=== PATIENT | female | born 1950 | race Caucasian/White ===

== ENCOUNTER → 2017-06-13 | Outpatient (CLI) | payer MEDICARE ==
[~2017-06-13] MED LIST: AMLO5TAB2 PO; ASPI1TAB57 PO; CALCTAB94 PO; CYCL10TA PO; HYDR50TA3 PO; LISI-515 PO; OMEP20TA93 PO; PLAV75TA29 PO; SIMV10TA PO; VITA-142 PO
== END ==
LOC: PHPRE 12:06
PROVIDERS: ATTEND Obstetrics & Gynecology
DX: Z01.812 Encounter for preprocedural laboratory examination (principal); N81.2 Incomplete uterovaginal prolapse; N81.11 Cystocele, midline
CPT/HCPCS: 36415; 86850; 86900; 86901; 86920

== ENCOUNTER 2017-06-14 06:07 | Observation (INO) | payer MEDICARE ==
[~2017-06-14] VITALS: Ht 165.1 cm; Wt 75.0 kg
[2017-06-14] MEDS ORDERED: ACETAMINOPHEN 1000 MG/100 ML 100 ML IV ONE (06:44)
[2017-06-14] MEDS ORDERED: SODIUM CHLORID 0.9% 500 ML IV PRN (06:45)
[2017-06-14] MEDS ORDERED: CHLORHEXIDINE GLUCONATE 2 % 1 PACK (2 CLOTHS) TOPICAL PRN (06:45)
[2017-06-14] MEDS ORDERED: ceFAZolin 1,000 MG/NS 100 ML IV SCH ×2 (06:45)
[2017-06-14] MEDS ORDERED: POVIDONE IODINE 5% (ANTISEPSIS KIT) 4 APPLICATIONS EACH NARE PRN (06:45)
[2017-06-14] MEDS ORDERED: LACTATED RINGER'S 1000 ML IV PRN (06:45)
[2017-06-14] MEDS ORDERED: METOPROLOL TARTRATE 25 MG TAB PO PRN (06:45)
[2017-06-14] MEDS ORDERED: FAMOTIDINE 20 MG/2 ML VIAL ONE (07:21)
[2017-06-14] MEDS ORDERED: MIDAZOLAM HCL 2 MG/2 ML VIAL ONE (07:21)
[2017-06-14] MEDS ORDERED: MORPHINE SULFATE 4 MG/ML INJ ONE (07:24)
[2017-06-14] MEDS ORDERED: APREPITANT 40 MG CAP ONE (07:25)
[2017-06-14] MEDS ORDERED: SODIUM CHLORIDE 0.9% 20 ML VIAL ONE (07:37)
[2017-06-14] MEDS ORDERED: ESTROGENS CONJUGATED VAG CREA 15 APPL/30 GM TUBE ONE (07:37)
[2017-06-14] MEDS ORDERED: VASOPRESSIN 20 UNITS/ML VIAL ONE (07:38)
[2017-06-14] MEDS ORDERED: BUPIVACAINE HCL PF 0.25% 30 ML VIAL ONE ×2 (07:53→07:55)
[2017-06-14] MEDS ORDERED: RESP: ALBUTEROL 2.5 MG/3 ML NEB (SCH) ONE (10:28)
--- NOTE | 2017-06-14 10:48 | PD.OP ---
Operative Report Date of Surgery: Jun 14, 2017 Preoperative Diagnosis: (1) Complete uterovaginal prolapse (2) PAD (peripheral artery disease) (3) Perineocele Postoperative Diagnosis: (1) Complete uterovaginal prolapse (2) Perineocele (3) PAD (peripheral artery disease) Procedure: Vaginal Sacrocolpopexy Posterior colporrhaphy Perineorrhaphy Anesthesia: Dr. Kristen ANGULO and pudendal block Surgeon: Gabby Cowan Force Dispatcher(s): Mesfin Jay Surgeon: n/a Operation and Findings: Indications: This 66 y/o has a protruding midline cystocele with incomplete uterine prolapse. She refused pessary. She denies urinary incontinence. She requests repair. Findings: Patient has an easily palpated ischial spine and associated ligaments , well-placed for colpopexy. Procedure: Patient was intubated in low stirrups to decrease chance of circulatory and musculoskeletal compromise. A weighted speculum was placed and the uterine cervix was grasped with a tenaculum. It descended almost to the introitus with traction. Using dilute pitressin, the right sulcus was incised through the mucosa. The mucosa was then from the underlying connective tissue across the posterior wall of the vagina to the left sulcus. Excess mucosa was trimmed. The sacrospinous ligament was reached with blunt dissection. A Capio device was used to attach the right vaginal sulcus to the sacrospinous ligament with PDS suture x2 placing them about 1.5 cm for the ischial spine. The mucosal edges in the sulci were then brought together in the midline, effectively reducing the rectocele. With the uterus fixed superiorly and the posterior vaginal wall repaired, the cystocele was also effectively reduced, obviating the need for anterior repair. The perineal body was attenuated, so the transverse perinei were identified and exposed, as were the bulbocavernosi. These muscle bodies were the pulled together at the perineum, thus rebuilding the perineal body. 0 Vicryl was used for this, but otherwise 2- 0 vicryl was used in the vagina and 3-0 Vicryl was used on the perineum. Vaginal packing was placed. The patient was extubated and transferred to the recovery room awake and breathing on her own. Sponge, needle and instrument counts were correct. Gabby Cowan MD Jun 14, 2017 10:48
[2017-06-14] MEDS ORDERED: PHENYLEPH/NS 1000 MCG/10 ML SYR IV ONE (12:00)
[2017-06-14] MEDS ORDERED: LIDOCAINE HCL 1% PF 5 ML SYRINGE OTHER ONE (12:00)
[2017-06-14] MEDS ORDERED: DEXAMETHASONE SOD PHOS 4 MG/ML VIAL IV ONE (12:00)
[2017-06-14] MEDS ORDERED: PROPOFOL 200 MG/20 ML AMP IV ONE (12:00)
[2017-06-14] MEDS ORDERED: GLYCOPYRROLATE 1 MG/5 ML SYRINGE IV PUSH ONE (12:00)
[2017-06-14] MEDS ORDERED: ONDANSETRON HCL 4 MG/2 ML VIAL IV PUSH ONE (12:00)
[2017-06-14] MEDS ORDERED: KETOROLAC TROMETHAMINE 30 MG/ML (IVP) VIAL IV PUSH ONE (12:00)
[2017-06-14] MEDS ORDERED: SODIUM CHLOR 0.9% 250 ML INJ 250 ML IV ONE (12:00)
[2017-06-14] MEDS ORDERED: ePHEDrine/NS 25 MG/5 ML SYRINGE IV ONE (12:00)
[2017-06-14] MEDS ORDERED: *Lactated Ringer's INJ 1,000 ML IV ONE (12:00)
[2017-06-14] MEDS ORDERED: PHENYLEPHRINE HCL 10 MG/ML VIAL IV ONE (12:00)
[2017-06-14 13:03] VITALS: BP 115/58; PULSE 83; RESP 16; TEMP 96.5; O2SAT 93
[2017-06-14] MEDS ORDERED: ONDANSETRON HCL 4 MG/2 ML VIAL IV PRN (13:30)
[2017-06-14] MEDS ORDERED: CYCLOBENZAPRINE HCL 10 MG TAB PO PRN (13:45)
[2017-06-14] MEDS: KETOROLAC TROMETHAMINE 30 MG/ML (IVP) VIAL IV PUSH SCH ×2 (13:59→22:12)
[2017-06-14 17:37] VITALS: BP 94/58; PULSE 77; RESP 18; TEMP 96.5; O2SAT 94
[2017-06-14] MEDS: oxyCODONE/ACETAMINOPHEN 7.5 MG/325 MG TAB PO PRN (19:05)
[2017-06-14] MEDS: ALPRAZolam 0.5 MG TAB PO PRN (19:06)
[2017-06-14 20:00] VITALS: BP 88/43; PULSE 73; RESP 20; TEMP 96; O2SAT 97
[2017-06-14 20:34] VITALS: O2SAT 92
[2017-06-14 21:00] VITALS: BP 92/58
[2017-06-15] VITALS (10 sets, daily range): BP systolic 76–98; BP diastolic 45–58; PULSE 53–71; RESP 14–18; TEMP 95.6–97.5; O2SAT 90–99
[2017-06-15] MEDS: oxyCODONE/ACETAMINOPHEN 7.5 MG/325 MG TAB PO PRN (02:28)
[2017-06-15] MEDS: KETOROLAC TROMETHAMINE 30 MG/ML (IVP) VIAL IV PUSH SCH ×2 (04:46→15:59)
[2017-06-15] MEDS ORDERED: ASPIRIN EC 81 MG TABEC PO SCH (09:00)
[2017-06-15] MEDS ORDERED: PRAVASTATIN SOD 20 MG TAB PO SCH (09:00)
[2017-06-15] MEDS ORDERED: LISINOPRIL 20 MG TAB PO SCH (09:00)
[2017-06-15] MEDS ORDERED: CALCIUM CARBONATE 1.25 GM (CA 500 MG) TAB PO SCH (09:00)
[2017-06-15] MEDS ORDERED: amLODIPine BESYLATE 5 MG TAB PO SCH (09:00)
[2017-06-15] MEDS ORDERED: CLOPIDOGREL 75 MG TAB PO SCH (09:00)
[2017-06-15] MEDS ORDERED: HYDROCHLOROTHIAZIDE 25 MG TAB PO SCH (09:00)
[2017-06-15] MEDS ORDERED: VITAMIN E 400 UNIT CAP PO SCH (09:00)
[2017-06-15] MEDS ORDERED: PANTOPRAZOLE SOD 20 MG DELAYED RELEASE TAB PO SCH (09:00)
[2017-06-15] MEDS: ALPRAZolam 0.5 MG TAB PO PRN (09:10)
[2017-06-15] MEDS ORDERED: MAGNESIUM HYDROXIDE SUSP 30 ML CUP PO ONE (11:45)
--- NOTE | 2017-06-15 15:58 | HHI.DS ---
Discharge Summary Admission Date Jun 14, 2017 at 12:52 Admitting Diagnosis Pt Condition on Discharge: Good Discharge Disposition: Discharge Home Discharge Instructions DIET: Follow Instructions for: As Tolerated, No Restrictions Activities you can perform: Shower Only-No Bath, Pelvic Rest Activities to avoid: Weight Bearing, Strenuous Activity, Sexual Activity Additional Information Patient already has prescriptions for pain medication at home. She already has a follow up appt scheduled next week in our office. Gabby Cowan MD Jun 15, 2017 15:58
== END 2017-06-15 18:35 | disposition home or self-care (01) ==
LOC: PHSDC 06:07 → PH3A 12:52
PROVIDERS: ADMIT Obstetrics & Gynecology; ATTEND Obstetrics & Gynecology
DX: N81.3 Complete uterovaginal prolapse (principal); I73.9 Peripheral vascular disease, unspecified; N81.81 Perineocele
CPT/HCPCS: 00902; 57250; 57282; 96374; 96375; 96376; G0378; J0131; J0690; J1100; J1885; J2250; J2270; J2370; J2405; J3010; J7050; J7120; J7613; J8501